=== PATIENT | female | born 1950 | race Caucasian/White ===

== ENCOUNTER 2022-01-30 11:48 | Inpatient (IN) | payer MEDICARE ==
[~2022-01-30] VITALS: Ht 157.5 cm; Wt 98.9 kg
[2022-01-30] MEDS ORDERED: ACETAMINOPHEN 325MG TABLET PO STA (12:07)
[2022-01-30 12:34] LABS: BASOPHILS % 0.6 % (0.0-2.0); EOSINOPHILS % 2.1 % (0.0-5.0); HEMATOCRIT. 25.2 % (36.0-48.0); HEMOGLOBIN. 8.6 g/dL (12.0-16.0); LYMPHOCYTES % 8.4 % (20.0-50.0); MEAN CORPUSCULAR HEMOGLOBIN 29.5 pg (28.0-32.0); MEAN CORPUSCULAR VOLUME 86.2 fL (81.0-99.0); MEAN PLATELET VOLUME 7.4 fl (7.4-10.4); MONOCYTES % 5.6 % (2.0-8.0); NEUTROPHILS % 83.3 % (40.0-76.0); PLATELET 224 x1000/uL (130-400); RED BLOOD CELL COUNT 2.93 mill/uL (4.2-5.4); RED CELL DISTRIBUTION WIDTH 13.9 % (11.6-14.6)
[2022-01-30 12:41] LABS: CHLORIDE 90 mEq/L (98-107)
[2022-01-30] MEDS ORDERED: ALBUTEROL 6.7GM HFA INHALER ORI ONE (12:45)
[2022-01-30 12:51] LABS: PROTHROMBIN TIME 10.4 sec (9.6-11.0)
[2022-01-30 12:54] LABS: ETHANOL BLOOD < 10 mg/dL
[2022-01-30 13:35] LABS: CLARITY URINE CLOUDY (CLEAR); COLOR URINE YELLOW (YELLOW); KETONES URINE NEGATIVE (NEGATIVE); LEUKOCYTE ESTERASE URINE NEGATIVE (NEGATIVE); NITRITE URINE NEGATIVE (NEGATIVE); OCCULT BLOOD URINE 1+ (NEGATIVE); PH URINE 7.5 (4.5-8.0); PROTEIN URINE 4+ (NEGATIVE); SPECIFIC GRAVITY URINE 1.015 (1.005-1.030); UROBILINOGEN URINE 0.2 E.U./dL (0.2-1.0)
[2022-01-30 13:48] LABS: *AMPHETAMINES SCREEN URINE NEGATIVE (NEGATIVE); *BARBITURATES SCREEN URINE NEGATIVE (NEGATIVE); *BENZODIAZEPINES SCREEN URINE PRESUMTIVE POSITIVE (NEGATIVE); *COCAINE SCREEN URINE NEGATIVE (NEGATIVE); CANNABINOID URINE SCREEN NEGATIVE (NEGATIVE); METHADONE URINE SCREEN NEGATIVE (NEGATIVE); OPIATES URINE SCREEN NEGATIVE (NEGATIVE); PHENCYCLIDINE URINE SCREEN NEGATIVE (NEGATIVE)
[2022-01-30] MEDS ORDERED: PIPERACILLIN/TAZ 3.375G PREMIX 50 ML IV NR (14:00)
[2022-01-30] MEDS ORDERED: VANCOMYCIN 1G PREMIX 200 ML IV NR (14:00)
[2022-01-30] MEDS ORDERED: ASPIRIN 325MG EC TABLET PO NR (14:00)
[2022-01-30 18:40] LABS: HEPATITIS B SURFACE ANTIGEN NEGATIVE
[2022-01-30] MEDS ORDERED: EPOETIN ALFA-EPBX 10,000 UNIT/ML VIAL SUBCUT SCH (21:00)
[2022-01-30 22:00] VITALS: BP 166/59
[2022-01-30] MEDS ORDERED: IPRATROPIUM/ALBUTEROL 0.5-3(2.5)MG/3ML NEB HHN PRN (22:45)
[2022-01-30] MEDS ORDERED: DEXTROSE 50% WATER 50ML SYRINGE IV PRN (22:45)
[2022-01-30] MEDS ORDERED: CLONIDINE 0.1MG TABLET PO PRN (22:45)
[2022-01-30] MEDS ORDERED: ACETAMINOPHEN 325MG TABLET PO PRN (22:45)
[2022-01-31] VITALS: BP 155/74
[2022-01-31 00:52] LABS: CREATINE KINASE MB FRACTION 2.5 ng/mL (0.5-3.6)
[2022-01-31] MEDS: SODIUM CHLORIDE 0.9% 1,000 ML IV SCH (01:44)
[2022-01-31 04:00] VITALS: BP 144/46
[2022-01-31] MEDS ORDERED: PNEUMOCOCCAL 23-VAL P-SAC VAC 0.5 ML IM ONE (04:15)
[2022-01-31] MEDS: PIPERACILLIN/TAZOBACTAM 3.375 G in DEXTROSE 5% WATER 50 ML IV SCH ×2 (05:57→20:52)
[2022-01-31] MEDS: INSULIN LISPRO 100 UNITS/ML SUBCUT SCH ×4 (06:03→20:55)
[2022-01-31] MEDS: BLOOD SUGAR DIAGNOSTIC STRIP TEST SCH ×4 (06:03→20:55)
[2022-01-31] MEDS: PANTOPRAZOLE 40MG DR TABLET PO SCH (07:01)
[2022-01-31 08:08] VITALS: BP 132/55
[2022-01-31 08:21] LABS: BASOPHILS % 0.8 % (0.0-2.0); EOSINOPHILS % 2.7 % (0.0-5.0); HEMATOCRIT. 22.5 % (36.0-48.0); HEMOGLOBIN. 7.7 g/dL (12.0-16.0); LYMPHOCYTES % 9.6 % (20.0-50.0); MEAN CORPUSCULAR HEMOGLOBIN 29.5 pg (28.0-32.0); MEAN CORPUSCULAR VOLUME 86.3 fL (81.0-99.0); MEAN PLATELET VOLUME 7.6 fl (7.4-10.4); MONOCYTES % 6.1 % (2.0-8.0); NEUTROPHILS % 80.8 % (40.0-76.0); PLATELET 198 x1000/uL (130-400); RED BLOOD CELL COUNT 2.61 mill/uL (4.2-5.4); RED CELL DISTRIBUTION WIDTH 13.9 % (11.6-14.6)
[2022-01-31 08:28] LABS: CHLORIDE 96 mEq/L (98-107)
[2022-01-31 08:34] LABS: PARTIAL THROMBOPLASTIN TIME 27.4 sec (23.4-31.0); PROTHROMBIN TIME 10.7 sec (9.6-11.0)
[2022-01-31 08:44] LABS: CREATINE KINASE 162 IU/L (26-192); CREATINE KINASE MB FRACTION 2.4 ng/mL (0.5-3.6); T4 FREE 1.05 ng/dL (0.76-1.46)
[2022-01-31] MEDS: ASPIRIN 81MG TABLET PO SCH (10:27)
[2022-01-31] MEDS: HEPARIN 5000 UNITS/ML VIAL SUBCUT SCH ×2 (10:29→20:55)
[2022-01-31 11:48] VITALS: BP 129/56
[2022-01-31 16:00] VITALS: BP 129/56
[2022-01-31 17:26] LABS: CREATINE KINASE MB FRACTION 1.9 ng/mL (0.5-3.6)
[2022-01-31 20:00] VITALS: BP 146/58
[2022-02-01] VITALS: BP 139/80
[2022-02-01] MEDS: SODIUM CHLORIDE 0.9% 1,000 ML IV SCH (01:06)
[2022-02-01 04:00] VITALS: BP 145/2
[2022-02-01] MEDS: BLOOD SUGAR DIAGNOSTIC STRIP TEST SCH ×3 (06:23→17:21)
[2022-02-01] MEDS: INSULIN LISPRO 100 UNITS/ML SUBCUT SCH ×3 (06:23→17:40)
[2022-02-01] MEDS: PANTOPRAZOLE 40MG DR TABLET PO SCH (06:32)
[2022-02-01 07:05] LABS: BASOPHILS % 1.3 % (0.0-2.0); EOSINOPHILS % 4.6 % (0.0-5.0); HEMATOCRIT. 22.3 % (36.0-48.0); HEMOGLOBIN. 7.5 g/dL (12.0-16.0); MEAN CORPUSCULAR HEMOGLOBIN 29.2 pg (28.0-32.0); MEAN CORPUSCULAR VOLUME 86.9 fL (81.0-99.0); MEAN PLATELET VOLUME 7.5 fl (7.4-10.4); MONOCYTES % 9.4 % (2.0-8.0); NEUTROPHILS % 70.7 % (40.0-76.0); PLATELET 200 x1000/uL (130-400); RED BLOOD CELL COUNT 2.57 mill/uL (4.2-5.4)
[2022-02-01 08:00] VITALS: BP 132/68
[2022-02-01] MEDS: PIPERACILLIN/TAZOBACTAM 3.375 G in DEXTROSE 5% WATER 50 ML IV SCH (10:50)
[2022-02-01] MEDS: HEPARIN 5000 UNITS/ML VIAL SUBCUT SCH (10:51)
[2022-02-01] MEDS: ASPIRIN 81MG TABLET PO SCH (10:51)
[2022-02-01 12:00] VITALS: BP 137/75
[2022-02-01] MEDS ORDERED: AMLODIPINE 5MG TABLET PO SCH (12:45)
[2022-02-01 16:00] VITALS: BP 135/73
[2022-02-01 18:42] VITALS: BP 152/74
== END 2022-02-01 19:15 | disposition home or self-care (01) | DRG 193 ==
LOC: ER 11:48 → EDBEDREQTM 13:44 → EDBEDREQ 13:44 → EDBEDREQSVC 13:44 → EDBEDREQ 17:34 → EDBEDREQTM 17:34 → ENRESERV 18:29 → 8WST 21:05
PROVIDERS: ADMIT Internal Medicine; ATTEND Internal Medicine
PROC: 5A1D70Z Performance of Urinary Filtration, Intermittent, Less than 6 Hours Per Day (ICD-10-PCS; principal; 2022-01-30)
PROC: 5A1D70Z Performance of Urinary Filtration, Intermittent, Less than 6 Hours Per Day (ICD-10-PCS; 2022-02-01)
DX: J18.9 Pneumonia, unspecified organism (principal); N18.6 End stage renal disease; I13.2 Hypertensive heart and chronic kidney disease with heart failure and with stage 5 chronic kidney disease, or end stage renal disease; I31.3 Pericardial effusion (noninflammatory); D64.9 Anemia, unspecified; I25.10 Atherosclerotic heart disease of native coronary artery without angina pectoris; E11.65 Type 2 diabetes mellitus with hyperglycemia; E78.00 Pure hypercholesterolemia, unspecified; E78.5 Hyperlipidemia, unspecified; Z20.822 Contact with and (suspected) exposure to COVID-19; E66.9 Obesity, unspecified; I50.9 Heart failure, unspecified; E11.22 Type 2 diabetes mellitus with diabetic chronic kidney disease; Z99.2 Dependence on renal dialysis; Z91.15 Patient's noncompliance with renal dialysis; Z68.39 Body mass index [BMI] 39.0-39.9, adult; Z71.3 Dietary counseling and surveillance
CPT/HCPCS: 36415; 71045; 80048; 80053; 80305; 80320; 81003; 82550; 82553; 82962; 83036; 83605; 83880; 84145; 84439; 84443; 84484; 85025; 86705; 86709; 86803; 87340; 87426; 87804; 93005; 93306; 99291; C9803; J0885; J1644; J1815; J2543; J3370; J7030; J7060; G0480

== ENCOUNTER 2022-02-08 07:27 | Inpatient (IN) | payer MEDICARE ==
[~2022-02-08] VITALS: Ht 167.6 cm; Wt 101.2 kg
[2022-02-08] MEDS ORDERED: NITROGLYCERIN 0.4MG TABLET SL SL PRN (08:15)
[2022-02-08] MEDS ORDERED: ASPIRIN 81MG TABLET PO ONE (08:15)
[2022-02-08 08:48] LABS: EOSINOPHILS % 2.7 % (0.0-5.0); HEMATOCRIT. 27.1 % (36.0-48.0); HEMOGLOBIN. 9.3 g/dL (12.0-16.0); LYMPHOCYTES % 17.4 % (20.0-50.0); MEAN CORPUSCULAR HEMOGLOBIN 29.4 pg (28.0-32.0); MEAN CORPUSCULAR VOLUME 85.7 fL (81.0-99.0); MEAN PLATELET VOLUME 7.4 fl (7.4-10.4); MONOCYTES % 10.6 % (2.0-8.0); NEUTROPHILS % 68.3 % (40.0-76.0); PLATELET 304 x1000/uL (130-400); RED BLOOD CELL COUNT 3.16 mill/uL (4.2-5.4); RED CELL DISTRIBUTION WIDTH 14.1 % (11.6-14.6)
[2022-02-08 08:53] LABS: CHLORIDE 95 mEq/L (98-107)
[2022-02-08] MEDS ORDERED: DEXTROSE 50% WATER 50ML SYRINGE IV PRN (11:45)
[2022-02-08] MEDS ORDERED: ACETAMINOPHEN 325MG TABLET PO PRN (11:45)
[2022-02-08] MEDS ORDERED: ONDANSETRON HCL 4MG/2ML INJ IV PRN (11:45)
[2022-02-08] MEDS: BLOOD SUGAR DIAGNOSTIC STRIP TEST SCH ×3 (12:20→21:23)
[2022-02-08] MEDS: INSULIN LISPRO 100 UNITS/ML SUBCUT SCH ×3 (12:23→21:23)
[2022-02-08 14:22] VITALS: BP 156/62
[2022-02-08 16:00] VITALS: BP 145/65
[2022-02-08] MEDS: ENOXAPARIN 40MG/0.4ML SYR SUBCUT SCH (18:12)
[2022-02-08 20:48] VITALS: BP 148/57
[2022-02-08] MEDS ORDERED: EPOETIN ALFA-EPBX 4,000 UNIT/ML VIAL SUBCUT SCH (21:00)
[2022-02-09] VITALS (7 sets, daily range): BP systolic 13–148; BP diastolic 46–82
[2022-02-09] MEDS: BLOOD SUGAR DIAGNOSTIC STRIP TEST SCH ×2 (07:35→12:10)
[2022-02-09 07:39] LABS: BASOPHILS % 1.1 % (0.0-2.0); EOSINOPHILS % 3.5 % (0.0-5.0); HEMOGLOBIN. 9.5 g/dL (12.0-16.0); LYMPHOCYTES % 18.2 % (20.0-50.0); MEAN CORPUSCULAR HEMOGLOBIN 28.5 pg (28.0-32.0); MEAN CORPUSCULAR VOLUME 87.1 fL (81.0-99.0); MEAN PLATELET VOLUME 7.3 fl (7.4-10.4); MONOCYTES % 9.2 % (2.0-8.0); PLATELET 321 x1000/uL (130-400); RED BLOOD CELL COUNT 3.33 mill/uL (4.2-5.4); RED CELL DISTRIBUTION WIDTH 14.5 % (11.6-14.6)
[2022-02-09] MEDS: INSULIN LISPRO 100 UNITS/ML SUBCUT SCH ×2 (08:55→12:14)
[2022-02-09 14:14] LABS: HEPATITIS B SURFACE ANTIGEN NEGATIVE
[2022-02-09] MEDS: ENOXAPARIN 40MG/0.4ML SYR SUBCUT SCH (18:32)
== END 2022-02-09 18:45 | disposition home or self-care (01) | DRG 291 ==
LOC: ER 08:00 → 7WST 10:16 → ENRESERV 11:21 → 7WST 13:19
PROVIDERS: ADMIT Internal Medicine; ATTEND Internal Medicine
DX: I13.2 Hypertensive heart and chronic kidney disease with heart failure and with stage 5 chronic kidney disease, or end stage renal disease (principal); N18.6 End stage renal disease; E87.1 Hypo-osmolality and hyponatremia; E87.8 Other disorders of electrolyte and fluid balance, not elsewhere classified; I25.10 Atherosclerotic heart disease of native coronary artery without angina pectoris; E66.3 Overweight; E11.22 Type 2 diabetes mellitus with diabetic chronic kidney disease; E78.00 Pure hypercholesterolemia, unspecified; D63.1 Anemia in chronic kidney disease; I50.9 Heart failure, unspecified; Z20.822 Contact with and (suspected) exposure to COVID-19; Z99.2 Dependence on renal dialysis; Z68.36 Body mass index [BMI] 36.0-36.9, adult
CPT/HCPCS: 36415; 71045; 80048; 80053; 82962; 83880; 84484; 85025; 86705; 86709; 86803; 87340; 87426; 93005; 99291; C9803; J0885; J1650; J1815

== ENCOUNTER 2022-08-01 22:24 | Inpatient (IN) | payer MEDICARE ==
[~2022-08-01] VITALS: Ht 162.6 cm; Wt 88.0 kg
[~2022-08-01 22:24] MED LIST: AMLO10TA80 MT; HYDR-4133 MT; LORA10TA7 MT; PROP60CA2 MT; SERT20OR6 PO; TOPUD PO; TRAZ-251 MT
[2022-08-01 23:19] LABS: CHLORIDE 91 mEq/L (98-107)
[2022-08-01] MEDS ORDERED: FUROSEMIDE 100MG/10ML VIAL IV NR (23:27)
[2022-08-01] MEDS ORDERED: INSULIN REGULAR (HUMULIN R) 300UNITS/3ML VIAL IV NR (23:30)
[2022-08-01] MEDS ORDERED: ALBUTEROL (0.083%) 2.5MG/3ML NEB HHN NR (23:30)
[2022-08-01] MEDS ORDERED: DEXTROSE 50% WATER 50ML SYRINGE IV NR (23:30)
[2022-08-01] MEDS ORDERED: CALCIUM CHLORIDE 1GM/10ML SYR IV NR (23:30)
[2022-08-01] MEDS ORDERED: SODIUM BICARBONATE 8.4% 1 MEQ/ML 50ML SYR IV NR (23:30)
[2022-08-01] MEDS ORDERED: ALBUTEROL (0.5%) 2.5MG/0.5ML NEB HHN ONE (23:38)
[2022-08-01 23:47] LABS: BASOPHILS % 0.7 % (0.0-2.0); EOSINOPHILS % 1.9 % (0.0-5.0); HEMATOCRIT. 29.1 % (36.0-48.0); HEMOGLOBIN. 10.3 g/dL (12.0-16.0); LYMPHOCYTES % 11.6 % (20.0-50.0); MEAN CORPUSCULAR HEMOGLOBIN 30.3 pg (28.0-32.0); MEAN CORPUSCULAR VOLUME 85.9 fL (81.0-99.0); MEAN PLATELET VOLUME 7.5 fl (7.4-10.4); NEUTROPHILS % 78.8 % (40.0-76.0); PLATELET 275 x1000/uL (130-400); RED BLOOD CELL COUNT 3.39 mill/uL (4.2-5.4); RED CELL DISTRIBUTION WIDTH 13.5 % (11.6-14.6)
[2022-08-02] VITALS (8 sets, daily range): BP systolic 128–168; BP diastolic 63–131
[2022-08-02] MEDS ORDERED: CLONIDINE 0.1MG TABLET PO PRN (05:45)
[2022-08-02] MEDS ORDERED: HYDRALAZINE 20MG/ML VIAL IV PRN (06:30)
[2022-08-02] MEDS ORDERED: IPRATROPIUM/ALBUTEROL 0.5-3(2.5)MG/3ML NEB HHN PRN (12:15)
[2022-08-02] MEDS ORDERED: HYDROCODONE/ACETAMINOPHEN 5/325MG TABLET PO PRN (12:15)
[2022-08-02] MEDS ORDERED: ACETAMINOPHEN 325MG TABLET PO PRN (12:15)
[2022-08-02] MEDS ORDERED: ONDANSETRON HCL 4MG/2ML INJ IV PRN (12:15)
[2022-08-02] MEDS: ENOXAPARIN 30MG/0.3ML SYR SUBCUT SCH (13:00)
[2022-08-02] MEDS ORDERED: NALOXONE HCL 0.4MG/ML VIAL IV PRN (16:30)
[2022-08-02] MEDS ORDERED: PARO10TA74 PO (18:54)
[2022-08-02] MEDS ORDERED: QUET50TA PO (18:56)
[2022-08-02 19:57] LABS: CREATINE KINASE MB FRACTION 2.1 ng/mL (0.5-3.6)
[2022-08-02 20:04] LABS: HEPATITIS B SURFACE ANTIGEN NEGATIVE
[2022-08-03] VITALS: BP 139/88
[2022-08-03] MEDS ORDERED: TEMAZEPAM 15MG CAPSULE PO PRN (02:15)
[2022-08-03 07:00] VITALS: BP 160/74
[2022-08-03 09:53] LABS: CHLORIDE 100 mEq/L (98-107)
[2022-08-03 10:01] LABS: BASOPHILS % 1.1 % (0.0-2.0); EOSINOPHILS % 2.5 % (0.0-5.0); HEMATOCRIT. 27.6 % (36.0-48.0); HEMOGLOBIN. 9.6 g/dL (12.0-16.0); LYMPHOCYTES % 10.3 % (20.0-50.0); MEAN CORPUSCULAR HEMOGLOBIN 30.2 pg (28.0-32.0); MEAN CORPUSCULAR VOLUME 87.1 fL (81.0-99.0); MEAN PLATELET VOLUME 7.8 fl (7.4-10.4); MONOCYTES % 8.9 % (2.0-8.0); NEUTROPHILS % 77.2 % (40.0-76.0); PLATELET 242 x1000/uL (130-400); RED BLOOD CELL COUNT 3.17 mill/uL (4.2-5.4); RED CELL DISTRIBUTION WIDTH 13.7 % (11.6-14.6)
[2022-08-03 10:06] LABS: CREATINE KINASE 133 IU/L (26-192); CREATINE KINASE MB FRACTION 1.8 ng/mL (0.5-3.6); HDL CHOLESTEROL 43 mg/dL (40-59); LDL CHOLESTEROL 136 mg/dL (5-100)
[2022-08-03 12:00] VITALS: BP 164/56
[2022-08-03] MEDS: ENOXAPARIN 30MG/0.3ML SYR SUBCUT SCH (13:25)
[2022-08-03] MEDS ORDERED: ALBUTEROL (0.083%) 2.5MG/3ML NEB HHN PRN (15:00)
[2022-08-03] MEDS ORDERED: IPRATROPIUM BROMIDE (0.02%) 0.5MG/2.5ML NEB HHN PRN (15:00)
[2022-08-03 16:00] VITALS: BP 150/48
[2022-08-03 17:33] VITALS: BP 150/48
== END 2022-08-03 19:00 | disposition home or self-care (01) | DRG 640 ==
LOC: ER 22:24 → MICUSO 23:40 → 8WST 08-02 16:21
PROVIDERS: ADMIT Internal Medicine; ATTEND Internal Medicine
PROC: 5A1D70Z Performance of Urinary Filtration, Intermittent, Less than 6 Hours Per Day (ICD-10-PCS; principal; 2022-08-02)
DX: E87.5 Hyperkalemia (principal); N18.6 End stage renal disease; I13.2 Hypertensive heart and chronic kidney disease with heart failure and with stage 5 chronic kidney disease, or end stage renal disease; E11.22 Type 2 diabetes mellitus with diabetic chronic kidney disease; I50.9 Heart failure, unspecified; E78.00 Pure hypercholesterolemia, unspecified; D63.1 Anemia in chronic kidney disease; Z79.899 Other long term (current) drug therapy; Z99.2 Dependence on renal dialysis; Z91.15 Patient's noncompliance with renal dialysis; Z79.4 Long term (current) use of insulin
CPT/HCPCS: 36415; 71045; 80053; 80061; 82550; 82553; 82962; 83880; 84439; 84443; 84484; 85025; 86705; 86709; 86803; 87340; 90935; 93005; 94640; 99285; J0360; J1650; J1815; J1940; J3490

== ENCOUNTER 2022-08-08 04:45 | Inpatient (IN) | payer MEDICARE ==
[~2022-08-08] VITALS: Ht 162.6 cm; Wt 83.9 kg
[~2022-08-08 04:45] MED LIST changes: -HYDR-4133 MT; -LORA10TA7 MT; +PARO10TA74 PO; +QUET50TA PO; -SERT20OR6 PO; -TOPUD PO; -TRAZ-251 MT
[2022-08-08 05:40] LABS: BASOPHILS % 0.6 % (0.0-2.0); EOSINOPHILS % 1.3 % (0.0-5.0); HEMATOCRIT. 25.2 % (36.0-48.0); LYMPHOCYTES % 19.8 % (20.0-50.0); MEAN CORPUSCULAR HEMOGLOBIN 30.6 pg (28.0-32.0); MEAN CORPUSCULAR VOLUME 85.9 fL (81.0-99.0); MEAN PLATELET VOLUME 7.5 fl (7.4-10.4); MONOCYTES % 9.7 % (2.0-8.0); NEUTROPHILS % 68.6 % (40.0-76.0); PLATELET 206 x1000/uL (130-400); RED BLOOD CELL COUNT 2.94 mill/uL (4.2-5.4); RED CELL DISTRIBUTION WIDTH 13.5 % (11.6-14.6)
[2022-08-08 05:43] LABS: CHLORIDE 94 mEq/L (98-107)
[2022-08-08] MEDS ORDERED: LORAZEPAM 0.5MG TABLET PO PRN (15:45)
[2022-08-08] MEDS: AMLODIPINE 5MG TABLET PO SCH ×2 (17:00→22:21)
[2022-08-08] MEDS ORDERED: CLONIDINE 0.1MG TABLET PO PRN (17:00)
[2022-08-08] MEDS ORDERED: ONDANSETRON HCL 4MG/2ML INJ IV PRN (17:00)
[2022-08-08] MEDS ORDERED: AMLODIPINE 10MG TABLET PO SCH (17:00)
[2022-08-08] MEDS ORDERED: HYDRALAZINE 20MG/ML VIAL IV PRN (17:45)
[2022-08-08] MEDS: ENOXAPARIN 30MG/0.3ML SYR SUBCUT SCH (18:00)
[2022-08-08 20:59] LABS: HEPATITIS B SURFACE ANTIGEN NEGATIVE
[2022-08-08] MEDS ORDERED: EPOETIN ALFA-EPBX 4,000 UNIT/ML VIAL SUBCUT SCH (21:00)
[2022-08-08 22:00] VITALS: BP 155/66
[2022-08-08] MEDS ORDERED: DEXTROSE 50% WATER 50ML SYRINGE IV PRN (22:00)
[2022-08-08] MEDS: PAROXETINE HCL 10MG TABLET PO SCH (22:19)
[2022-08-08] MEDS: PROPRANOLOL HCL 10MG TABLET PO SCH (22:19)
[2022-08-08] MEDS: ATORVASTATIN CALCIUM 10MG TABLET PO SCH (22:19)
[2022-08-08] MEDS: QUETIAPINE FUMARATE 50MG TABLET PO SCH (22:20)
[2022-08-09] VITALS (16 sets, daily range): BP systolic 92–176; BP diastolic 42–84
[2022-08-09 01:39] LABS: CREATINE KINASE MB FRACTION 1.4 ng/mL (0.5-3.6)
[2022-08-09] MEDS: BLOOD SUGAR DIAGNOSTIC STRIP TEST SCH ×4 (07:59→21:11)
[2022-08-09] MEDS: AMLODIPINE 5MG TABLET PO SCH ×2 (08:14→21:11)
[2022-08-09] MEDS: PROPRANOLOL HCL 10MG TABLET PO SCH ×2 (08:14→21:11)
[2022-08-09] MEDS: LORAZEPAM 0.5MG TABLET PO PRN (08:24)
[2022-08-09] MEDS: INSULIN LISPRO 100 UNITS/ML SUBCUT SCH ×4 (08:25→21:00)
[2022-08-09] MEDS: ACETAMINOPHEN 325MG TABLET PO PRN (08:33)
[2022-08-09] MEDS ORDERED: LORAZEPAM 2MG/ML CPJ IV NR (15:45)
[2022-08-09 16:13] LABS: BASOPHILS % 0.4 % (0.0-2.0); EOSINOPHILS % 2.4 % (0.0-5.0); HEMATOCRIT. 27.9 % (36.0-48.0); HEMOGLOBIN. 9.6 g/dL (12.0-16.0); LYMPHOCYTES % 14.2 % (20.0-50.0); MEAN CORPUSCULAR HEMOGLOBIN 29.5 pg (28.0-32.0); MEAN CORPUSCULAR VOLUME 86.2 fL (81.0-99.0); MEAN PLATELET VOLUME 8.1 fl (7.4-10.4); MONOCYTES % 7.8 % (2.0-8.0); NEUTROPHILS % 75.2 % (40.0-76.0); PLATELET 265 x1000/uL (130-400); RED BLOOD CELL COUNT 3.24 mill/uL (4.2-5.4); RED CELL DISTRIBUTION WIDTH 13.7 % (11.6-14.6)
[2022-08-09 16:44] LABS: CREATINE KINASE MB FRACTION 1.8 ng/mL (0.5-3.6)
[2022-08-09] MEDS: ENOXAPARIN 30MG/0.3ML SYR SUBCUT SCH (17:50)
[2022-08-09] MEDS: ATORVASTATIN CALCIUM 10MG TABLET PO SCH (21:11)
[2022-08-09] MEDS: QUETIAPINE FUMARATE 50MG TABLET PO SCH (21:11)
[2022-08-09] MEDS: PAROXETINE HCL 10MG TABLET PO SCH (21:11)
[2022-08-10 00:35] VITALS: BP 169/84
[2022-08-10 04:00] VITALS: BP 163/62
[2022-08-10] MEDS: ACETAMINOPHEN 325MG TABLET PO PRN (04:42)
[2022-08-10 06:35] LABS: BASOPHILS % 0.7 % (0.0-2.0); EOSINOPHILS % 2.8 % (0.0-5.0); LYMPHOCYTES % 17.2 % (20.0-50.0); MEAN CORPUSCULAR HEMOGLOBIN 30.3 pg (28.0-32.0); MEAN CORPUSCULAR VOLUME 88.3 fL (81.0-99.0); MEAN PLATELET VOLUME 7.7 fl (7.4-10.4); MONOCYTES % 9.4 % (2.0-8.0); NEUTROPHILS % 69.9 % (40.0-76.0); PLATELET 259 x1000/uL (130-400); RED BLOOD CELL COUNT 3.28 mill/uL (4.2-5.4); RED CELL DISTRIBUTION WIDTH 13.8 % (11.6-14.6)
[2022-08-10] MEDS: BLOOD SUGAR DIAGNOSTIC STRIP TEST SCH ×4 (06:47→20:39)
[2022-08-10] MEDS: INSULIN LISPRO 100 UNITS/ML SUBCUT SCH ×4 (06:48→20:41)
[2022-08-10] MEDS: PROPRANOLOL HCL 10MG TABLET PO SCH ×2 (09:57→20:37)
[2022-08-10] MEDS: AMLODIPINE 5MG TABLET PO SCH ×2 (09:58→20:37)
[2022-08-10 12:00] VITALS: BP 135/43
[2022-08-10] MEDS: LORAZEPAM 0.5MG TABLET PO PRN (14:13)
[2022-08-10 16:00] VITALS: BP 145/46
[2022-08-10] MEDS: ENOXAPARIN 30MG/0.3ML SYR SUBCUT SCH (17:40)
[2022-08-10 20:00] VITALS: BP 108/42
[2022-08-10] MEDS: ATORVASTATIN CALCIUM 10MG TABLET PO SCH (20:37)
[2022-08-10] MEDS: PAROXETINE HCL 10MG TABLET PO SCH (20:38)
[2022-08-10] MEDS: QUETIAPINE FUMARATE 50MG TABLET PO SCH (20:38)
[2022-08-11] VITALS (18 sets, daily range): BP systolic 107–155; BP diastolic 43–75
[2022-08-11] MEDS: LORAZEPAM 0.5MG TABLET PO PRN (02:55)
[2022-08-11] MEDS: INSULIN LISPRO 100 UNITS/ML SUBCUT SCH ×3 (06:09→18:10)
[2022-08-11] MEDS: BLOOD SUGAR DIAGNOSTIC STRIP TEST SCH ×3 (06:09→17:40)
[2022-08-11] MEDS: PROPRANOLOL HCL 10MG TABLET PO SCH (08:57)
[2022-08-11] MEDS: AMLODIPINE 5MG TABLET PO SCH (08:58)
[2022-08-11] MEDS: ACETAMINOPHEN 325MG TABLET PO PRN (12:49)
[2022-08-11] MEDS: ENOXAPARIN 30MG/0.3ML SYR SUBCUT SCH (18:00)
== END 2022-08-11 18:10 | disposition home or self-care (01) | DRG 205 ==
LOC: ER 05:14 → 7WST 08:54
PROVIDERS: ADMIT Internal Medicine; ATTEND Internal Medicine
PROC: 5A1D70Z Performance of Urinary Filtration, Intermittent, Less than 6 Hours Per Day (ICD-10-PCS; principal; 2022-08-09)
PROC: 5A1D70Z Performance of Urinary Filtration, Intermittent, Less than 6 Hours Per Day (ICD-10-PCS; 2022-08-11)
DX: M94.0 Chondrocostal junction syndrome [Tietze] (principal); N18.6 End stage renal disease; G93.40 Encephalopathy, unspecified; I13.2 Hypertensive heart and chronic kidney disease with heart failure and with stage 5 chronic kidney disease, or end stage renal disease; I50.30 Unspecified diastolic (congestive) heart failure; F03.93 Unspecified dementia, unspecified severity, with mood disturbance; S09.90XA Unspecified injury of head, initial encounter; J44.9 Chronic obstructive pulmonary disease, unspecified; E78.5 Hyperlipidemia, unspecified; E66.9 Obesity, unspecified; I25.10 Atherosclerotic heart disease of native coronary artery without angina pectoris; M47.892 Other spondylosis, cervical region; E11.22 Type 2 diabetes mellitus with diabetic chronic kidney disease; D63.1 Anemia in chronic kidney disease; Z79.899 Other long term (current) drug therapy; Z99.2 Dependence on renal dialysis; I25.2 Old myocardial infarction; Z79.4 Long term (current) use of insulin; M47.812 Spondylosis without myelopathy or radiculopathy, cervical region; Z68.31 Body mass index [BMI] 31.0-31.9, adult; W01.0XXA Fall on same level from slipping, tripping and stumbling without subsequent striking against object, initial encounter
CPT/HCPCS: 36415; 71045; 72170; 80048; 80053; 80061; 82550; 82553; 82962; 83036; 83880; 84484; 85025; 86705; 86709; 86803; 87340; 90935; 93005; 93306; 97162; 97166; 97535; 99285; A6261; J0360; J0885; J1650; J1815; J2060

== ENCOUNTER 2022-08-15 15:03 | Emergency (ER) | payer MEDICARE ==
[~2022-08-15] VITALS: Ht 157.5 cm; Wt 90.0 kg
[2022-08-15 15:12] VITALS: BP 152/64
[2022-08-15 15:33] LABS: BASOPHILS % 0.5 % (0.0-2.0); EOSINOPHILS % 1.8 % (0.0-5.0); HEMATOCRIT. 27.1 % (36.0-48.0); HEMOGLOBIN. 9.1 g/dL (12.0-16.0); LYMPHOCYTES % 14.1 % (20.0-50.0); MEAN CORPUSCULAR HEMOGLOBIN 30.3 pg (28.0-32.0); MEAN CORPUSCULAR VOLUME 89.9 fL (81.0-99.0); MEAN PLATELET VOLUME 6.9 fl (7.4-10.4); MONOCYTES % 8.6 % (2.0-8.0); PLATELET 246 x1000/uL (130-400); RED BLOOD CELL COUNT 3.02 mill/uL (4.2-5.4); RED CELL DISTRIBUTION WIDTH 15.1 % (11.6-14.6)
[2022-08-15 15:41] LABS: PROTHROMBIN TIME 11.1 sec (9.6-11.0)
[2022-08-15 15:42] LABS: CHLORIDE 92 mEq/L (98-107)
[2022-08-15] MEDS ORDERED: LIDOCAINE 5% PATCH TOP SCH (17:15)
[2022-08-15] MEDS ORDERED: ACETAMINOPHEN 325MG TABLET PO ONE (17:15)
[2022-08-15] MEDS ORDERED: LIDO700A15 TP (20:15)
[2022-08-15] MEDS ORDERED: ACETAMINOPHEN 325MG TABLET PO NR (20:30)
== END 2022-08-15 20:42 | disposition home or self-care (01) ==
LOC: ER 15:21
DX: R07.89 Other chest pain (principal); G89.11 Acute pain due to trauma; I12.0 Hypertensive chronic kidney disease with stage 5 chronic kidney disease or end stage renal disease; E11.22 Type 2 diabetes mellitus with diabetic chronic kidney disease; N18.6 End stage renal disease; Z99.2 Dependence on renal dialysis; Z91.81 History of falling; F03.90 Unspecified dementia, unspecified severity, without behavioral disturbance, psychotic disturbance, mood disturbance, and anxiety; Z79.84 Long term (current) use of oral hypoglycemic drugs; Z79.4 Long term (current) use of insulin; Z79.899 Other long term (current) drug therapy
CPT/HCPCS: 36415; 71045; 80053; 83880; 84484; 85025; 93005; 99285